=== PATIENT | female | born 1940 | race Caucasian/White ===

== ENCOUNTER 2021-04-04 13:12 | Inpatient (IN) | payer OTHER ==
[~2021-04-04] VITALS: Ht 162.6 cm; Wt 63.5 kg
[2021-04-04 14:28] LABS: HEMOGLOBIN 11.4 gm/dl (12.3-15.3); RED BLOOD COUNT 3.71 M/UL (4.00-5.10); WHITE BLOOD COUNT 18.6 K/UL (4.5-11.0)
[2021-04-04 14:29] LABS: BUN/CREATININE RATIO 32 (0-10)
[2021-04-04] MEDS ORDERED: ALENDRONATE SOD70 MG PO (16:48)
[2021-04-04] MEDS ORDERED: FLONASE 0.05% N16 GM (16:49)
[2021-04-04] MEDS ORDERED: CITALOPRAM HBR40 MG PO (16:49)
[2021-04-04] MEDS ORDERED: HYDROCODON-ACE1 EAC6 PO (16:50)
[2021-04-04] MEDS ORDERED: TIZANIDINE HCL4 MG PO (16:50)
[2021-04-04] MEDS ORDERED: FAMOTIDINE20 MG PO (16:51)
[2021-04-04] MEDS ORDERED: TOPIRAMATE50 MG PO (16:52)
[2021-04-04] MEDS ORDERED: CELECOXIB200 MG PO (16:52)
[2021-04-04] MEDS ORDERED: CRESTOR20 MG PO (16:53)
[2021-04-04] MEDS ORDERED: ASPIRIN EC325 MG PO (16:54)
[2021-04-04] MEDS ORDERED: THERAGRAN M TAB1 EA PO (16:55)
[2021-04-05 02:46] LABS: HEMOGLOBIN 9.5 gm/dl (12.3-15.3)
[2021-04-05 03:04] LABS: RED BLOOD COUNT 3.12 M/UL (4.00-5.10); WHITE BLOOD COUNT 9.4 K/UL (4.5-11.0)
[2021-04-05 03:22] LABS: BUN/CREATININE RATIO 27 (0-10)
[2021-04-05 18:24] LABS: HEMOGLOBIN 14.8 gm/dl (12.3-15.3); RED BLOOD COUNT 4.92 M/UL (4.00-5.10); WHITE BLOOD COUNT 18.9 K/UL (4.5-11.0)
[2021-04-05 18:38] LABS: BUN/CREATININE RATIO 25 (0-10)
[2021-04-06 05:51] LABS: HEMOGLOBIN 10.3 gm/dl (12.3-15.3); RED BLOOD COUNT 3.47 M/UL (4.00-5.10); WHITE BLOOD COUNT 12.6 K/UL (4.5-11.0)
[2021-04-06 06:40] LABS: BUN/CREATININE RATIO 29 (0-10)
[2021-04-07 03:53] LABS: BUN/CREATININE RATIO 23 (0-10)
[2021-04-07 04:05] LABS: RED BLOOD COUNT 2.3 M/UL (4.00-5.10); WHITE BLOOD COUNT 7.8 K/UL (4.5-11.0)
[2021-04-07 04:06] LABS: HEMOGLOBIN 6.9 gm/dl (12.3-15.3)
--- NOTE | 2021-04-07 16:13 | NUR ---
04/07/21 0900 POLAR ICE OFF 1300 POLAR ICE REPLACED
[2021-04-08 03:04] LABS: HEMOGLOBIN 9.9 gm/dl (12.3-15.3); WHITE BLOOD COUNT 7.1 K/UL (4.5-11.0)
[2021-04-08 03:10] LABS: RED BLOOD COUNT 3.26 M/UL (4.00-5.10)
[2021-04-08 03:26] LABS: BUN/CREATININE RATIO 14 (0-10)
[2021-04-09 06:05] LABS: HEMOGLOBIN 10.3 gm/dl (12.3-15.3); RED BLOOD COUNT 3.43 M/UL (4.00-5.10); WHITE BLOOD COUNT 6.7 K/UL (4.5-11.0)
[2021-04-09 06:44] LABS: BUN/CREATININE RATIO 11 (0-10)
[2021-04-10 03:02] LABS: HEMOGLOBIN 10.6 gm/dl (12.3-15.3); RED BLOOD COUNT 3.51 M/UL (4.00-5.10); WHITE BLOOD COUNT 8.1 K/UL (4.5-11.0)
[2021-04-10 03:20] LABS: BUN/CREATININE RATIO 10 (0-10)
[2021-04-11 03:21] LABS: HEMOGLOBIN 11.4 gm/dl (12.3-15.3); RED BLOOD COUNT 3.76 M/UL (4.00-5.10); WHITE BLOOD COUNT 8.1 K/UL (4.5-11.0)
[2021-04-11 03:42] LABS: BUN/CREATININE RATIO 12 (0-10)
[2021-04-13 03:52] LABS: HEMOGLOBIN 10.1 gm/dl (12.3-15.3); RED BLOOD COUNT 3.39 M/UL (4.00-5.10); WHITE BLOOD COUNT 7.7 K/UL (4.5-11.0)
[2021-04-13 04:16] LABS: BUN/CREATININE RATIO 11 (0-10)
[2021-04-13] MEDS ORDERED: HYDROCODON-ACE1 EAC4 PO (11:11)
[2021-04-13] MEDS ORDERED: COLACE100 MG PO (11:11)
== END 2021-04-13 16:03 | DRG 956 ==
LOC: ER1 13:12 → CDU 15:00 → M/S 15:00 → ER1 04-05 15:00 → M/S 04-13 16:03
PROVIDERS: Internal Medicine; Orthopaedic Surgery; Physician Assistant; ADMIT Internal Medicine
PROC: 0SPD04Z Removal of Internal Fixation Device from Left Knee Joint, Open Approach (ICD-10-PCS; 2021-04-05)
PROC: B24BZZZ Ultrasonography of Heart with Aorta (ICD-10-PCS; 2021-04-05)
PROC: 30233N1 Transfusion of Nonautologous Red Blood Cells into Peripheral Vein, Percutaneous Approach (ICD-10-PCS; 2021-04-05)
PROC: 0QS906Z Reposition Left Femoral Shaft with Intramedullary Internal Fixation Device, Open Approach (ICD-10-PCS; principal; 2021-04-05 15:00)
PROC: 30233N1 Transfusion of Nonautologous Red Blood Cells into Peripheral Vein, Percutaneous Approach (ICD-10-PCS; 2021-04-07)
DX: S72.302A Unspecified fracture of shaft of left femur, initial encounter for closed fracture (principal); S32.10XA Unspecified fracture of sacrum, initial encounter for closed fracture; J69.0 Pneumonitis due to inhalation of food and vomit; J15.9 Unspecified bacterial pneumonia; S32.019A Unspecified fracture of first lumbar vertebra, initial encounter for closed fracture; S22.089A Unspecified fracture of T11-T12 vertebra, initial encounter for closed fracture; M97.12XA Periprosthetic fracture around internal prosthetic left knee joint, initial encounter; D62 Acute posthemorrhagic anemia; M62.82 Rhabdomyolysis; Z20.822 Contact with and (suspected) exposure to COVID-19; W18.30XA Fall on same level, unspecified, initial encounter; I95.2 Hypotension due to drugs; M19.90 Unspecified osteoarthritis, unspecified site; Z96.653 Presence of artificial knee joint, bilateral; R01.1 Cardiac murmur, unspecified; E87.6 Hypokalemia; Z66 Do not resuscitate; D72.828 Other elevated white blood cell count; I95.9 Hypotension, unspecified; M81.0 Age-related osteoporosis without current pathological fracture; Z96.612 Presence of left artificial shoulder joint; D50.9 Iron deficiency anemia, unspecified; Z96.611 Presence of right artificial shoulder joint; E78.5 Hyperlipidemia, unspecified; Z88.5 Allergy status to narcotic agent; Y93.9 Activity, unspecified; Y92.009 Unspecified place in unspecified non-institutional (private) residence as the place of occurrence of the external cause; Z88.8 Allergy status to other drugs, medicaments and biological substances; Z90.710 Acquired absence of both cervix and uterus; Z79.82 Long term (current) use of aspirin; Z90.49 Acquired absence of other specified parts of digestive tract; Z85.43 Personal history of malignant neoplasm of ovary; Z79.899 Other long term (current) drug therapy; Z82.49 Family history of ischemic heart disease and other diseases of the circulatory system; Z80.9 Family history of malignant neoplasm, unspecified
CPT/HCPCS: ECHO; 36415; 36430; 70450; 71045; 72125; 72128; 72131; 73502; 73552; 73700; 76000; 80048; 80053; 81001; 82550; 82553; 83540; 83550; 83735; 84132; 84439; 84443; 84484; 85014; 85018; 85025; 85027; 85610; 85730; 86140; 86850; 86900; 86901; 86920; 93005; 93306; 94640; 94760; 97110; 97110-GP-CQ; 97162; 97166; 97530-GP-CQ; 99285; C1713; J0171; J0690; J1100; J1335; J1644; J1650; J1885; J2270; J2405; J2704; J2795; J3010; J3370; J7030; J7120; P9016; U0002